=== PATIENT | female | born 1970 | race Caucasian/White ===

== ENCOUNTER 2024-02-27 15:05 | Emergency (ER) | payer OTHER, SELFPAY ==
[2024-02-27 15:08] VITALS: BP 160/85
[2024-02-27 15:29] LABS: % Basophils 0.5 % (0-2); % Eosinophils 1.5 % (0-6); % Immature Granulocytes 0.7 % (0-0.5); % Lymphocytes 14.4 % (20.5-51.1); % Monocytes 4.5 % (1.7-9.3); % Neutrophils 78.4 % (42.2-75.2); Absolute Basophils 0.1 10^3/uL (0-0.2); Absolute Eosinophils 0.2 10^3/uL (0-0.7); Absolute Immature Granulocytes 0.1 10^3/uL (0-0.05); Absolute Lymphocytes 2.2 10^3/uL (1.2-3.4); Absolute Monocytes 0.7 10^3/uL (0.1-0.6); Absolute Neutrophils 11.9 10^3/uL (1.4-6.5); Hematocrit 38.3 % (37.0-47.0); Hemoglobin 13.2 g/dL (12.0-16.0); Mean Corp Hgb Conc. 34.5 g/dL (33.0-37.0); Mean Corpuscular Hgb 29.5 pg (27.0-31.0); Mean Corpuscular Volume 85.7 fL (81.0-99.0); Mean Platelet Volume 9.5 fL (7.4-10.4); Nucleated Red Blood Cells % 0 %; Platelet Count 316 10^3/uL (130-400); Red Blood Cell Count 4.47 10^6/uL (4.20-5.40); White Blood Cell Count 15.2 10^3/uL (4.8-10.8)
[2024-02-27 15:48] LABS: ALT (SGPT) 25 U/L (0-35); AST (SGOT) 22 U/L (14-36); Albumin 4.4 g/dl (3.5-5.0); Alkaline Phosphatase 95 U/L (38-126); Blood Urea Nitrogen 17 mg/dl (7-17); Calcium 9.8 mg/dl (8.4-10.2); Carbon Dioxide 26 mmol/L (22-30); Chloride 96 mmol/L (98-107); Glucose 115 mg/dl (70-99); Potassium 4.4 mmol/L (3.5-5.1); Sodium 133 mmol/L (135-145); Total Bilirubin 0.6 mg/dl (0.2-1.3); Total Protein 7.3 g/dl (6.3-8.2); eGFR 54.13
[2024-02-27 16:23] VITALS: BMI 39.5
[2024-02-27 17:18] VITALS: BP 130/68
[2024-02-27 18:00] VITALS: BP 131/61
[2024-02-27 18:58] LABS: Troponin I < 0.012 ng/ml
[2024-02-27 19:00] VITALS: BP 120/66
[2024-02-27 19:47] VITALS: BP 137/81
[2024-02-27 20:08] VITALS: BP 137/81
--- NOTE | 2024-02-27 20:35 | ED.GENMED ---
History of Present Illness
General
Chief Complaint: Dizziness
Source: patient
Exam Limitations: none
Time Seen by Provider: 02/27/24 17:33
Travel History
Have you had any contact with someone who has COVID-19?: No
Do you have any symptoms of coronavirus? Fever > 100 degrees, chills, cough, shortness of breath, sore throat, loss of taste or smell, muscle aches, or headache?: No
History of Present Illness
History of Present Illness:
Fell while walking her dog. States she thinks she got tangled in dogs leash. States she rolled out into street. Denies hittingher head. States she could not initially get self up, felt dizzy. She eventually got up and went home. States at home
she reports her left shoulder dislocated and reduced self 4 times. She also reports dizziness, head tingling, lip numbness. Brought stacy to ED for eval. On arrival she is awake and alert, in no distress.
Past History
Past History
ED Past Medical History: Asthma, HTN and NIDDM
ED Past Surgical History: ( x 2) and Gynecological ([facility])
Social History
Tobacco: Non-smoker
Alcohol: Occasional
Personal:
Living: with family
Review of Systems
Review of Systems
Allergies reviewed?: Yes
All Other Systems: ROS reviewed and negative except as documented in HPI and ROS
Constitutional: Reports no symptoms
EENT: Reports no symptoms
Respiratory: Reports no symptoms
Cardiac: Reports no symptoms
ABD/GI: Reports no symptoms
: Reports no symptoms
Musculoskeletal: Reports joint pain (States left shoulder dislocated and reduced self 4 tines at home)
Skin: Reports no symptoms
Neurological: Reports dizzy
Psychiatric: Reports no symptoms
Phy Exam
General Physical Exam
General Presentation: well appearing and no apparent distress
General age: appears stated age
General Skin: warm and dry
General Habitus: normal
General Mental: alert
Cardiovascular Exam
Cardiovascular Exam: regular rate/rhythm and no edema
Pulmonary Exam
Pulmonary Exam: lungs clear and no respiratory distress
Neurological Exam
Neurological Exam: alert, oriented x3, CN II-XII intact, no motor deficits, no sensory deficits, speech normal and normal gait
Jaden Coma Scale
Eye Opening: Spontaneous
Verbal Response: Oriented
Motor Response: Obeys Commands
GCS Total Score: 15
Musculoskeletal Exam
Musculoskeletal Exam: full ROM and neuro vasc intact
Skin Exam
Skin Exam: normal color, warm/dry and no rash
Psychiatric Exam
Psychiatric Exam: normal mood/affect
Course
Orders/Labs/Results
Orders:
Orders
02/27/24 15:14
Shoulder, Left, Trauma CR [CR Shoulder, Trauma - Left] Urgent
Comment:
Reason For Exam: fall
02/27/24 15:15
Electrocardiogram (*1) Urgent
Reason for Study: Vertigo / Dizzy
EKG- Treatment ONCE
02/27/24 15:21
Complete Blood Count/With Diff Urgent
Comprehensive Metabolic Panel Urgent
02/27/24 18:26
Troponin I Urgent
02/27/24 19:30
Sling Left-Treatment ONCE
Abnormal Lab Results
02/27/24
15:21
WBC 15.2 H 10^3/uL
(4.8-10.8)
Abs Immat Gran (auto) 0.1 H 10^3/uL
(0-0.05)
Absolute Neuts (auto) 11.9 H 10^3/uL
(1.4-6.5)
Absolute Monos (auto) 0.7 H 10^3/uL
(0.1-0.6)
Immature Gran % 0.7 H %
(0-0.5)
Neutrophils % 78.4 H %
(42.2-75.2)
Lymphocytes % 14.4 L %
(20.5-51.1)
Sodium 133 L mmol/L
(135-145)
Chloride 96 L mmol/L
(98-107)
Creatinine 1.2 H mg/dL
(0.6-1.0)
Glucose 115 H mg/dl
(70-99)
02/27/24 15:21
02/27/24 15:21
Vital Signs
Initial and Last Documented VS:
Initial Vital Signs
Temp Pulse Resp BP Pulse Ox
98.1 F 103 18 160/85 97
02/27/24 15:08 02/27/24 15:08 02/27/24 15:08 02/27/24 15:08 02/27/24 15:08
Last Documented Vital Signs
Temp Pulse Resp BP Pulse Ox
98.1 F 105 20 137/81 96
02/27/24 15:08 02/27/24 20:08 02/27/24 20:08 02/27/24 20:08 02/27/24 20:08
*Radiology
Radiology exam reviewed: radiology read reviewed
*Pulse Oximetry
Patient hypoxic: no
*Critical Care Note
Total Time (30-74mins, 75-104mins- exclusive of procedures): Not Applicable
ED Attending Note
-
Portions of this chart may have been created with voice recognition software.� Occasional wrong word or��sound alike� substitutions may have occurred due to the inherent limitations of voice recognition software.
Discharge Plan
Departure
Patient Disposition: Home (Routine Discharge)
Date of Disposition: 02/27/24
Time of Disposition: 19:29
Patient with high blood pressure during this ER visit?: No
Condition: Good
Covid-19: Not Applicable
Discharge Problem:
Dizziness, Injury of shoulder
Instructions: Sprain (DC), How to Use a Shoulder Sling, Using Cold for Pain, Dizziness
Prescriptions:
No Action
fluticasone propion-salmeterol [Advair Diskus] 1 EACH blister with device
2 ea IH BID
cetirizine [Zyrtec] 10 MG tablet
10 mg PO HS
spironolactone 100 MG tablet
100 mg PO BID
montelukast 10 MG tablet
10 mg PO DAILY
metformin 750 MG tablet extended release 24 hr
750 mg PO DAILY
hydrochlorothiazide 12.5 MG tablet
12.5 mg PO DAILY Qty: 30 0RF
levothyroxine 150 MCG tablet
150 mcg PO DAILY
lisinopril 10 MG tablet
10 mg PO DAILY Qty: 30 0RF
Referrals:
Florida Alexandre MD [Family Provider] - Tomorrow
Interventions
Interventions:
*Risk Screen - Suicide Last Done: 02/27/24 16:23
*General Assessment Last Done: 02/27/24 16:23
*Neglect/Abuse Screening Last Done: 02/27/24 16:23
ED- Fall Risk Assessment Last Done: 02/27/24 20:08
*ED COVID-19 Vaccine History Last Done: 02/27/24 16:23
*Nursing Disposition Last Done: 02/27/24 20:08
ED- Cardiac Assessment Last Done: 02/27/24 20:08
ED-Musculoskeletal Assessment Last Done: 02/27/24 16:25
ED- Neurological Assessment Last Done: 02/27/24 16:25
ED Swallowing Screen Last Done: 02/27/24 16:25
Discharge Date and Time
Discharge Date/Time: 02/27/24 20:10
Print Language: SWEDISH
Musculoskeletal Injury Exam
Musculoskeletal Injury Exam
Left Shoulder:
Pain with Movement?: Moderate
Tender to palpation?: Moderate
Soft tissue swelling?: None
External deformity and angulation?: None
Joint effusion?: None
Contusion?: Moderate
Hematoma-local bleeding into tissue?: None
Strain- Sprain- Tear (Connective tissue injury)?: Moderate
Crepitus with movement?: No
Joint instability?: No
Malalignment/deformity?: No
Range of motion: Limited
Distal skin color and temperature: normal-warm & good color
Capillary Refill: normal
Normal distal neurovascular exam?: No
== END 2024-02-27 20:10 | disposition home or self-care (01) ==
LOC: EMR 15:05
PROVIDERS: EMERGENCY PHYSICIAN Emergency Medicine; FAMILY PHYSICIAN Family Medicine
DX: R42 Dizziness and giddiness (principal); S49.92XA Unspecified injury of left shoulder and upper arm, initial encounter; W19.XXXA Unspecified fall, initial encounter
CPT/HCPCS: 99285; 73030; 80053; 84484; 85025; 93005

== ENCOUNTER → 2025-05-13 07:57 | Outpatient (REF) | payer OTHER, SELFPAY | LOC: RCS 07:57 | PROVIDERS: ATTENDING PHYSICIAN Internal Medicine Cardiovascular Disease; FAMILY PHYSICIAN Family Medicine | DX: R07.89 Other chest pain (principal) | CPT/HCPCS: 78452; 93017; A9500; J2785 ==

== ENCOUNTER → 2025-05-14 14:48 | Outpatient (REF) | payer OTHER, SELFPAY | LOC: RCS 14:48 | PROVIDERS: ATTENDING PHYSICIAN Internal Medicine Cardiovascular Disease; FAMILY PHYSICIAN Family Medicine | DX: R06.02 Shortness of breath (principal) | CPT/HCPCS: 93306 ==